=== PATIENT | female | born 1960 | race Caucasian/White ===

== ENCOUNTER 2016-12-25 15:45 | Emergency (ER) | payer MEDICAID ==
[~2016-12-25] VITALS: Ht 152.4 cm; Wt 66.9 kg
[~2016-12-25 15:45] MED LIST: LISI1TAB7 PO
[2016-12-25 17:19] LABS: HEMATOCRIT 36.5 % (34.6-47.8); HEMOGLOBIN 12.1 g/dL (11.7-16.4); WHITE BLOOD COUNT 7.7 x10^3/uL (3.4-10)
[2016-12-25] MEDS ORDERED: HYDROmorphone 1 MG/ML, 1ML ONE (17:21)
[2016-12-25] MEDS ORDERED: ONDANSETRON 2MG/ML, 2ML ONE (17:22)
[2016-12-25] MEDS ORDERED: HYDROmorphone 1 MG/ML, 1ML IVPush PRN (17:30)
[2016-12-25] MEDS ORDERED: ONDANSETRON 2MG/ML, 2ML IVPush ONE (17:30)
[2016-12-25] MEDS ORDERED: SODIUM CHLORIDE 0.9% 1,000ML IVBOLUS ONE (17:30)
[2016-12-25 17:31] LABS: BLOOD UREA NITROGEN 19 mg/dL (7-18)
[2016-12-25 17:33] LABS: ASPARTATE AMINO TRANSFERASE 20 U/L (15-37)
[2016-12-25] MEDS ORDERED: OMNIPAQUE 350 MG/ML, 100ML BOTTLE ONE (18:03)
[2016-12-25 20:01] VITALS: BP 110/71
== END 2016-12-25 20:05 | disposition home or self-care (01) ==
LOC: ED 19:55
DX: K43.2 Incisional hernia without obstruction or gangrene (principal)
CPT/HCPCS: 36415; 74177; 80053; 81003; 85025; 96374; 96375; 99285; J1170; J2405; J7030; Q9967